=== PATIENT | female | born 1970 | race Caucasian/White ===

== ENCOUNTER → 2025-01-29 | Outpatient (CLI) | payer BC ==
[2025-01-29 11:21] LABS: Thyroid Stimulating Hormone 0.723 uIU/mL (0.360-4.800)
== END ==
LOC: LAB SHORT 09:23 → LAB 09:23
PROVIDERS: Physician Assistant
DX: E05.80 Other thyrotoxicosis without thyrotoxic crisis or storm (principal)
CPT/HCPCS: 84439; 84443; 84481